=== PATIENT | female | born 1930 | race Caucasian/White ===

== ENCOUNTER 2016-07-25 13:55 | Emergency (ER) | payer MEDICARE, BC ==
[2016-07-25 15:48] VITALS: BP 139/90
--- NOTE | 2016-07-25 16:25 | UC ---
Respiratory Complaint HPI - HPI Summary HPI Summary: 4 DAYS OF COUGH AND CONGESTION. DECREASED APPETITE AND NAUSEA. NO FEVER. NO SOB OR CHEST PAIN. - History of Current Complaint Chief Complaint: UCRespiratory Stated Complaint: COUGH Time Seen by Provider: 07/25/16 15:39 Hx Obtained From: Patient, Family/Director Of Testing - SISTER Onset/Duration: Gradual Onset, Lasting Days, Still Present Timing: Constant Severity Initially: Moderate Severity Currently: Moderate Pain Intensity: 0 Pain Scale Used: 0-10 Numeric Character: Cough: Productive Aggravating Factors: Deep Breaths Alleviating Factors: Nothing Associated Signs And Symptoms: Positive: Nasal Congestion. Negative: Dyspnea, Fever, Chills, Pleuritic Chest Pain, Wheezing, Hemoptysis, Dizziness, Edema, URI , Hoarseness, Sinus Discomfort - Allergies/Home Medications Allergies/Adverse Reactions: Allergies Allergy/AdvReac Type Severity Reaction Status Date / Time Glucosamine Allergy Hives Verified 07/25/16 15:48 Home Medications: Home Medications Cholecalciferol TAB* [Vitamin D TAB*] 07/25/16 [History] Cyanocobalamin TAB* [Vitamin B12 TAB*] 07/25/16 [History] Multiple Vitamins W/ Minerals [Vitamins & Minerals] 1 tab PO 07/25/16 [History] PMH/Surg Hx/FS Hx/Imm Hx Cardiovascular History Of: Reports: Hypertension - CONTROL WITH MEDS - Surgical History Surgical History: Yes Surgery Procedure, Year, and Place: 1959'S [facility]ST[facility]CTOMY, [facility] 1997 RIGHT BREAST MASTECTOMY, [facility]. 06/22 PANCREAS REMOVED, [facility] - Family History Known Family History: Positive: Hypertension - Social History Alcohol Use: None Substance Use Type: None Smoking Status (MU): Never Smoked Tobacco Review of Systems Constitutional: Negative ENT: Sore Throat, Nasal Discharge Respiratory: Cough Cardiovascular: Negative Gastrointestinal: Negative All Other Systems Reviewed And Are Negative: Yes Physical Exam Triage Information Reviewed: Yes Appearance: Well-Appearing, No Pain Distress, Well-Nourished Vital Signs: Initial Vital Signs Temp 97.8 F 07/25/16 15:44 Pulse 64 07/25/16 15:44 Resp 18 07/25/16 15:44 BP 139/90 07/25/16 15:44 Pulse Ox 95 07/25/16 15:44 Vital Signs Reviewed: Yes Eyes: Positive: Conjunctiva Clear ENT: Positive: Hearing grossly normal, Pharynx normal, Other: - PT DECLINES TO REMOVE HEARING AIDS FOR TM EXAMINATION Neck: Positive: Supple, Nontender, No Lymphadenopathy Respiratory: Positive: No respiratory distress, No accessory muscle use, Crackles - MINIMAL COARSE RALES LEFT LOWER LOBE. Negative: Rhonchi, Stridor, Wheezing Cardiovascular Exam: Normal Abdomen Description: Positive: Soft Musculoskeletal: Positive: No Edema Neurological: Positive: Alert Psychological: Positive: Normal Response To Family, Age Appropriate Behavior Skin: Negative: rashes UC Diagnostic Evaluation - Laboratory O2 Sat by Pulse Oximetry: 95 Respiratory Course/Dx - Course Course Of Treatment: DISCUSSED CXR TODAY. PT PREFERS TO DEFER. WILL TREAT EMPIRICALLY BASED ON CLINICAL PRESENTATION. - Differential Dx/Diagnosis Differential Diagnosis/HQI/PQRI: Pulmonary Edema, Lower Resp Infection - PNEUMONIA Provider Diagnoses: BRONCHITIS Discharge - Discharge Plan Condition: Stable Disposition: HOME Prescriptions: Azithromycin [Azithromycin 500 MG TAB] 500 mg PO DAILY #5 tab Patient Education Materials: Acute Bronchitis (ED) Referrals: [place], [Primary Care Provider] - If Needed Additional Instructions: IF YOU ARE NOT IMPROVING OVER THE NEXT 5-7 DAYS SEEK FOLLOW-UP. BE SURE TO STAY HYDRATED. IF YOU ARE NOT EATING MUCH SOLID FOOD TRY ENSURE SHAKES. GO TO THE ER WITHOUT FAIL IF YOU DEVELOP SHORTNESS OF BREATH, CHEST PAIN, DIZZINESS, VOMITING OR ANY OTHER CONCERNING SYMPTOMS.
== END 2016-07-25 16:36 | disposition home or self-care (01) ==
LOC: UCEAST 13:55
DX: J40 Bronchitis, not specified as acute or chronic (principal); I10 Essential (primary) hypertension; Z88.8 Allergy status to other drugs, medicaments and biological substances
CPT/HCPCS: 99202; G0463